=== PATIENT | female | born 1995 | race Caucasian/White ===

== ENCOUNTER 2016-08-23 06:38 | Emergency (ER) | payer OTHER ==
[2016-08-23] MEDS ORDERED: DEXTROSE 5% IV ONE ×2 (07:28)
[2016-08-23] MEDS ORDERED: PENICILLIN POTASSIUM IV ONE ×2 (07:28)
[2016-08-23] MEDS ORDERED: WATER IV ONE ×2 (07:28)
[2016-08-23] MEDS ORDERED: KETOROLAC 30 MG/ML 1 ML VIAL IVP STA (07:29)
[2016-08-23] MEDS ORDERED: CLINDAMYCIN 600 MG in DEXTROSE 5% IN WATER 50 ML IVPB STA ×2 (07:33)
--- NOTE | 2016-08-23 07:33 | ED ---
ENT HPI - General Chief complaint: Dental/Oral Stated complaint: abcessed tooth Time Seen by Provider: 08/23/16 07:00 Source: patient, family, RN notes reviewed Mode of arrival: ambulatory Limitations: no limitations - History of Present Illness Initial comments: Is a 19-year-old female with a benign history states she had the onset last evening of facial swelling with a large amount of pain she also had bilateral earaches. She thinks is secondary to her teeth she has some cavities in her front upper teeth she at this point denies any fevers chills or sweats just a lot of facial pain moderate to severe associated with the swelling. No neck pain no cough or phlegm production or other symptoms MD complaint: tooth pain, ear pain, other - Related Data Previous Rx's Medication Instructions Recorded Clindamycin [Cleocin] 300 mg PO Q6H #40 capsule 08/23/16 Ibuprofen [Motrin] 800 mg PO Q6HR PRN #20 tab 08/23/16 Allergies Allergy/AdvReac Type Severity Reaction Status Date / Time No Known Allergies Allergy Verified 08/23/16 06:45 Review of Systems ROS Statement: Those systems with pertinent positive or pertinent negative responses have been documented in the HPI. ROS Other: All systems not noted in ROS Statement are negative. Past Medical History Additional Past Medical History / Comment(s): History of seizure after overdose of [id number] History of Any Multi-Drug Resistant Organisms: None Reported Past Surgical History: No Surgical Hx Reported Past Anesthesia/Blood Transfusion Reactions: No Reported Reaction Additional Past Anesthesia/Blood Transfusion Reaction / Comment(s): NEVER HAD ANESTHESIA Past Psychological History: Depression Additional Psychological History / Comment(s): TAKES NO MEDS AT THIS TIME. Smoking Status: Current every day smoker Past Alcohol Use History: Rare Additional Past Alcohol Use History / Comment(s): SMOKED FOR 2 YRS, LESS THAN 1 PPD. Past Drug Use History: Marijuana - Past Family History Father Additional Family Medical History / Comment(s): Club feet Sister(s) Additional Family Medical History / Comment(s): sister's son at 5years old Schpritzengoldberg syndrome General Exam - General Exam Comments Initial Comments: This is a well-developed well-nourished awake alert oriented 3 female Limitations: no limitations General appearance: alert, anxious, in distress Head exam: Present: normocephalic Eye exam: Present: normal appearance, PERRL, EOMI ENT exam: Present: TM's normal bilaterally, other (Gingival tenderness palpation no definite drainage or abscess pocket to myofascial swollen and looked swollen and especially left side of the face tenderness palpation no fluctuance.) Neck exam: Present: normal inspection. Absent: tenderness, meningismus, lymphadenopathy Respiratory exam: Present: normal lung sounds bilaterally. Absent: respiratory distress, wheezes, rales, rhonchi, stridor Cardiovascular Exam: Present: regular rate, normal rhythm, normal heart sounds. Absent: systolic murmur, diastolic murmur, rubs, gallop, clicks GI/Abdominal exam: Present: soft, normal bowel sounds. Absent: distended, tenderness, guarding, rebound, rigid Extremities exam: Present: normal inspection, full ROM, normal capillary refill. Absent: tenderness, pedal edema, joint swelling, calf tenderness Back exam: Present: normal inspection Neurological exam: Present: alert, oriented X3, CN II-XII intact Psychiatric exam: Present: normal affect, normal mood Skin exam: Present: warm, dry, intact, normal color. Absent: rash Course Vital Signs 08/23/16 08/23/16 06:42 08:00 Temperature 99.3 F 99 F Pulse Rate 100 Respiratory 20 86 H Rate Blood Pressure 132/74 118/83 O2 Sat by Pulse 99 99 Oximetry - Reevaluation(s) Reevaluation #1: 08/23/16 08:52 Reevaluation patient reveals that she feels improved the swelling still remains. Medical Decision Making - Medical Decision Making The patient is feeling somewhat improved. A long discussion regarding the findings and I did suggest that she be admitted for continued IV antibiotics. She states this will not work for her at this time. She will try going home on oral medications and come back if any problems. She is informed that she does definitely need a follow-up with a dentist for repair of the teeth. She is aware there may be an abscess is not drainable at this time. She will seek care for teeth #9 and 10 - Lab Data Result diagrams: 08/23/16 07:53 08/23/16 07:53 Lab Results 08/23/16 08/23/16 Range/Units 07:53 07:53 WBC 11.8 H (3.8-10.6) k/uL RBC 4.55 (3.80-5.40) m/uL Hgb 13.6 (11.4-16.0) gm/dL Hct 41.8 (34.0-46.0) % MCV 91.9 (80.0-100.0) fL MCH 29.9 (25.0-35.0) pg MCHC 32.6 (31.0-37.0) g/dL RDW 13.3 (11.5-15.5) % Plt Count 257 (150-450) k/uL Neutrophils % 79 % Lymphocytes % 10 % Monocytes % 7 % Eosinophils % 3 % Basophils % 0 % Neutrophils # 9.3 H (1.3-7.7) k/uL Lymphocytes # 1.2 (1.0-4.8) k/uL Monocytes # 0.8 (0-1.0) k/uL Eosinophils # 0.4 (0-0.7) k/uL Basophils # 0.0 (0-0.2) k/uL Sodium 142 (137-145) mmol/L Potassium 4.5 (3.5-5.1) mmol/L Chloride 108 H (98-107) mmol/L Carbon Dioxide 24 (22-30) mmol/L Anion Gap 10 mmol/L BUN 9 (7-17) mg/dL Creatinine 0.50 L (0.52-1.04) mg/dL Est GFR (MDRD) Af Amer >60 (>60 ml/min/1.73 sqM) Est GFR (MDRD) Non-Af >60 (>60 ml/min/1.73 sqM) Glucose 95 (74-99) mg/dL Calcium 9.7 (8.4-10.2) mg/dL Total Bilirubin 2.0 H (0.2-1.3) mg/dL AST 19 (14-36) U/L ALT 20 (9-52) U/L Alkaline Phosphatase 51 (38-126) U/L Total Protein 7.7 (6.3-8.2) g/dL Albumin 4.2 (3.5-5.0) g/dL Disposition Clinical Impression: Dental caries, Gingivitis, Facial cellulitis Disposition: HOME SELF-CARE Condition: Good Instructions: Dental Caries (ED), Toothache (ED), Dental Abscess (ED) Prescriptions: Clindamycin [Cleocin] 300 mg PO Q6H #40 capsule Ibuprofen [Motrin] 800 mg PO Q6HR PRN #20 tab PRN Reason: Pain
[2016-08-23 08:03] LABS: Basophils % (A) 0 %; CH 30.6; CHCM 33.4; Eosinophils # (A) 0.4 k/uL (0-0.7); Eosinophils % (A) 3 %; HCT 41.8 % (34.0-46.0); HDW 2.24; HGB 13.6 gm/dL (11.4-16.0); Luc % (Auto) 1; Lymphocytes # (A) 1.2 k/uL (1.0-4.8); Lymphocytes % (A) 10 %; MCH 29.9 pg (25.0-35.0); MCHC 32.6 g/dL (31.0-37.0); MCV 91.9 fL (80.0-100.0); Mean Platelet Volume 7.9; Monocytes # (A) 0.8 k/uL (0-1.0); Monocytes % (A) 7 %; Neutrophils # (A) 9.3 k/uL (1.3-7.7); Neutrophils % (A) 79 %; RBC 4.55 m/uL (3.80-5.40); RDW 13.3 % (11.5-15.5); WBC 11.8 k/uL (3.8-10.6); WBC (Perox) 11.64
[2016-08-23 08:15] LABS: ALT 20 U/L (9-52); AST 19 U/L (14-36); Alkaline Phosphatase 51 U/L (38-126); Anion Gap 10 mmol/L; Blood Urea Nitrogen 9 mg/dL (7-17); Calcium 9.7 mg/dL (8.4-10.2); Carbon Dioxide 24 mmol/L (22-30); Chloride 108 mmol/L (98-107); Glucose 95 mg/dL (74-99); Non-African American GFR(MDRD) >60 (>60 ml/min/1.73 sqM); Potassium 4.5 mmol/L (3.5-5.1); Sodium 142 mmol/L (137-145); Total Protein 7.7 g/dL (6.3-8.2)
[2016-08-23 09:08] VITALS: BP 114/63; PULSE 88; RESP 18; TEMP 98.4
== END 2016-08-23 09:15 | disposition home or self-care (01) ==
LOC: EC 06:38
DX: L03.211 Cellulitis of face (principal); K05.10 Chronic gingivitis, plaque induced; K02.9 Dental caries, unspecified
CPT/HCPCS: 36415; 80053; 85025; 87040; 99283; 96365; 96375; J1885

== ENCOUNTER → 2017-02-18 | Outpatient (CLI) | payer OTHER | END | disposition home or self-care (01) | LOC: LABWHC1 11:24 | PROVIDERS: ATTEND Obstetrics & Gynecology | DX: N91.2 Amenorrhea, unspecified (principal) | CPT/HCPCS: 36415; 84702 ==